=== PATIENT | female | born 1990 | race Caucasian/White ===

== ENCOUNTER 2017-11-15 23:28 | Emergency (ER) | payer MEDICAID ==
[~2017-11-15] VITALS: Ht 162.6 cm; Wt 73.0 kg
[2017-11-15 23:39] VITALS: BP 132/89
== END 2017-11-16 03:00 | disposition left against medical advice (07) ==
LOC: ER 11-16 01:24
DX: Z53.21 Procedure and treatment not carried out due to patient leaving prior to being seen by health care provider (principal)